=== PATIENT | male | born 1975 | race Two or more races ===

== ENCOUNTER 2019-08-21 21:38 | Emergency (ER) | payer SELFPAY ==
[~2019-08-21] VITALS: Ht 165.1 cm; Wt 72.7 kg
[2019-08-22] MEDS ORDERED: KETOROLAC TROMETHAMINE 60 MG/2 ML VIAL IM ONE (02:00)
[2019-08-22 02:12] VITALS: BP 146/58
== END 2019-08-22 02:21 | disposition home or self-care (01) ==
LOC: EMS 21:41
DX: S13.8XXA Sprain of joints and ligaments of other parts of neck, initial encounter (principal); X50.3XXA Overexertion from repetitive movements, initial encounter; Y93.89 Activity, other specified; Y92.89 Other specified places as the place of occurrence of the external cause; Y99.8 Other external cause status
CPT/HCPCS: 96372; 99283; J1885